=== PATIENT | female | born 1970 | race Asian ===

== ENCOUNTER 2023-01-11 16:59 | Emergency (ER) | payer OTHER, SELFPAY ==
[2023-01-11] VITALS (9 sets, daily range): BP systolic 187–235; BP diastolic 87–112; PULSE 75–88; RESP 18–26; TEMP 37.2; O2SAT 100; BMI 28.3
--- NOTE | 2023-01-11 18:05 | ED.RECABL ---
HPI - Recheck/Abnormal Lab/Rx General Chief Complaint: Recheck/Abnormal Lab/Rx Stated Complaint: High blood pressure Time Seen by Provider: 01/11/23 17:17 Source: patient Mode of arrival: Ambulatory History of Present Illness HPI narrative: 52F non smoker with history of HTN on Coreg ER 20mg Was at her clinic for a routine visit to get medication refills and they found her blood pressure was elevated over 200 and she was told to present to the emergency department for evaluation and treatment. She denies any symptoms such as headache or blurred vision. She has no chest pain or shortness of breath. She denies nausea, vomiting or diarrhea. She is not dizzy, weak or lightheaded. She denies any change in her medications and has not missed any doses. Related Data Previous Rx's Medication Instructions Recorded lisinopril 20 mg tablet 20 mg PO DAILY #30 tabs 01/11/23 Allergies Allergy/AdvReac Type Severity Reaction Status Date / Time Penicillins Allergy Difficulty Verified 01/11/23 17:08 Breathing Review of Systems Review of Systems Narrative: GENERAL: Denies chills, fatigue, malaise, fever, sweats. HEENT: Denies sinus pain, ear pain, sore throat, difficulty swallowing, dizziness. RESPIRATORY: Denies dyspnea, cough, wheezing, hemoptysis, sputum. CARDIOVASCULAR: Denies chest pain, palpitations, orthopnea, edema, GASTROINTESTINAL: Denies nausea, vomiting, abdominal pain, diarrhea, constipation, melena. : Denies dysuria, frequency, incontinence, hematuria, urinary retention. MUSCULOSKELETAL: denies weakness, joint pain, or bony pain SKIN: Denies rash, skin lesions, or other NEUROLOGIC: Denies weakness, headache, numbness, change in speech, confusion, seizures, incoordination. PSYCHIATRIC: No concerning psychosocial issues. 12 point review of systems is negative except for those stated above Patient History Social History Smoking Status: Never smoker Smoking Status: Never smoker alcohol intake frequency: 0-2 drinks per day Substance Use Type: does not use Exam Narrative Exam Narrative: GENERAL: [52] year old patient appears stated age. Well-developed patient, in mild distress. HEAD: Atraumatic. Normocephalic. EYES: Pupils equal round and reactive. Extraocular motions intact. No scleral icterus. No injection or drainage. ENT: Nose without bleeding, purulent drainage. Throat without erythema, tonsillar hypertrophy or exudate. Airway patent. NECK: Trachea midline. Non tender CARDIOVASCULAR: Regular rate and rhythm without murmurs, gallops, or rubs. RESPIRATORY: Clear to auscultation. Breath sounds equal bilaterally. No wheezes, rales, or rhonchi. GASTROINTESTINAL: Abdomen soft, non-tender, nondistended. EXTREMITIES: No edema or joint tenderness. BACK: Nontender without deformity or crepitance. No flank tenderness. NEURO: AOx3. SKIN: No rash or erythema of visible areas Initial Vital Signs Initial Vital Signs: Vital Signs Temperature 99.0 F 01/11/23 17:02 Pulse Rate 77 01/11/23 17:02 Respiratory Rate 18 01/11/23 17:02 Blood Pressure 223/107 H 01/11/23 17:02 Pulse Oximetry 100 01/11/23 17:02 Oxygen Delivery Method Room Air 01/11/23 17:02 Course Orders Ordered: Discontinued Medications Hydralazine HCl (Hydralazine 20 Mg/Ml Vial) 10 mg IV NOW ONE Stop: 01/11/23 18:17 Last Admin: 01/11/23 18:28 Dose: 10 mg Documented By: Lisinopril (Lisinopril 20 Mg Tablet) 20 mg PO NOW ONE Stop: 01/11/23 18:59 Last Admin: 01/11/23 19:09 Dose: 20 mg Documented By: Vital Signs Vital signs: Vital Signs - 8 hr 01/11/23 17:02 01/11/23 17:10 01/11/23 17:11 Temperature 99.0 F Pulse Rate 77 88 Respiratory Rate 18 Blood Pressure 223/107 H 235/112 H Pulse Oximetry 100 100 Oxygen Delivery Method Room Air 01/11/23 17:11 01/11/23 17:30 Temperature Pulse Rate 87 75 Respiratory Rate 22 Blood Pressure Pulse Oximetry 100 Oxygen Delivery Method MDM - Recheck/Abnormal Lab/Rx Lab Data 01/11/23 17:30 01/11/23 17:30 Labs: Lab Results 01/11/23 01/11/23 Range/Units 17:30 17:30 WBC 13.5 H (4.5-11.0) X10^3/uL RBC 4.85 (4.0-5.2) X10^6/uL Hgb 14.8 (12.0-16.0) g/dL Hct 43.2 (36-46) % MCV 89.1 (80-100) fL MCH 30.5 (26-34) PG MCHC 34.2 (30-36) % RDW 12.9 (11.6-14.8) % Plt Count 230 (150-400) X10^3/uL Neut % (Auto) 62.6 (50-75) % Lymph % (Auto) 27.9 (25-40) % [place] % (Auto) 7.6 (3-14) % Eos % (Auto) 1.3 L (2-4) % Baso % (Auto) 0.6 (0-2) % Neut # (Auto) 8400 H (0824-6549) /uL Lymph # (Auto) 3700 (7704-8466) /uL [place] # (Auto) 1000 H (0-900) /uL Eos # (Auto) 200 (0-450) /uL Baso # (Auto) 100 (0-100) /uL Sodium 138 (137-145) mmol/L Potassium 3.7 (3.4-5.1) mmol/L Chloride 102 (98-107) mmol/L Carbon Dioxide 27 (22-32) mmol/L BUN 7 (7-17) mg/dL Creatinine 0.57 (0.52-1.04) mg/dL Estimated GFR > 60 (>60) mL/min BUN/Creatinine Ratio 12.3 (6-22) Glucose 102 H (70-100) mg/dL Calcium 9.6 (8.4-10.2) mg/dL Total Bilirubin 0.9 (0.2-1.3) mg/dL AST 57 H (14-36) IU/L ALT 31 (<35) IU/L Alkaline Phosphatase 92 (38-126) U/L Total Creatine Kinase 103 (30-135) U/L Troponin I < 0.012 (0.01-0.034) ng/mL NT-Pro-B Natriuret Pep 46 (<125) pg/mL Total Protein 8.7 H (6.3-8.2) g/dL Albumin 4.6 (3.5-5.0) g/dL Globulin 4.1 (1.7-4.1) g/dL Albumin/Globulin Ratio 1.1 (1.0-2.8) MDM Narrative Medical decision making narrative: CC: 52-year-old female with asymptomatic hypertension Complicating co-morbidities: Known hypertension, age greater 50 Data collected from: Patient Medical records reviewed: Prior notes reviewed in our EMR Differential considered, but not limited to: Hypertension, medical noncompliance versus other Exam documented above, pertinent findings include: HR regular, lungs clear, abdomen soft, no focal neuro findings Lab Test results independently reviewed as above. Pertinent findings: No significant finding Independently reviewed EKG as above Treatments: Hydralazine and lisinopril Re-evaluations: Patient continues to be asymptomatic Discussion: Patient referred from primary care office for asymptomatic hypertension. Initially she was in the 210s or so and improved into the 190s and when 80s. She denies symptoms thought to be related to her high blood pressure. We discussed increasing her current medication or adding a 2nd agent. Given the extended release form of her meds we chose to add a 2nd. She is given return precautions and questions answered to her apparent satisfaction Disposition: see below, along with detailed discharge instructions that have been reviewed with patient as well as indications for ED re-evaluation and additional outpatient follow up Discharge Plan Departure Patient Disposition: Home Clinical Impression: Hypertension Instructions: High Blood Pressure Activity Restrictions/Additional Instructions: *You have been diagnosed with [hypertension] *What to do: *Please continue to take your regular medications as directed. [ x] New medication prescriptions sent to your pharmacy: [ [facility]] [ ] New medication written as a paper prescription [ ] No new medications given *Please follow up with your primary care provider in 2-3 days, call for an appointment. Let them know you were seen in the Emergency Department and that we ask that you be seen in follow up. We will electronically transmit a record of today's note if your PCP is in our system *If you do not have a primary care provider please contact the [facility] Resource line at [phone]. They will ask some questions about your medical history and help get you set up with a doctor in the community. *Return to Emergency Department if you should have any new, worsening or concerning symptoms, such as [fever greater than 101 F, shaking chills, worsening pain, persistent vomiting or other bothersome symptoms] Prescriptions: New lisinopril 20 mg tablet 20 mg PO DAILY Qty: 30 0RF Stand Alone Forms: Patient Portal/API
[2023-01-11 18:24] LABS: Add Manual Diff / Slide Review NO; Basophils Absolute Auto 100 /uL (0-100); Basophils Percent Auto 0.6 % (0-2); Eosinophils Absolute Auto 200 /uL (0-450); Eosinophils Percent Auto 1.3 % (2-4); Hematocrit 43.2 % (36-46); Hemoglobin 14.8 g/dL (12.0-16.0); Lymphocytes Absolute Auto 3700 /uL (1100-4500); Lymphocytes Percent Auto 27.9 % (25-40); Mean Corpuscular HGB Conc 34.2 % (30-36); Mean Corpuscular Hemoglobin 30.5 PG (26-34); Mean Corpuscular Volume 89.1 fL (80-100); Monocytes Absolute Auto 1000 /uL (0-900); Monocytes Percent Auto 7.6 % (3-14); Neutrophils Absolute Auto 8400 /uL (1500-7000); Neutrophils Percent Auto 62.6 % (50-75); Platelet Count 230 X10^3/uL (150-400); Red Blood Cell Count 4.85 X10^6/uL (4.0-5.2); Red Cell Distribution Width 12.9 % (11.6-14.8); White Blood Cell Count 13.5 X10^3/uL (4.5-11.0)
[2023-01-11] MEDS: HYDRALAZINE 20 MG/ML VIAL 10 MG IV (18:28)
[2023-01-11 18:30] LABS: Alanine Aminotransferase 31 IU/L (<35); Albumin 4.6 g/dL (3.5-5.0); Albumin Globulin Ratio 1.1 (1.0-2.8); Alkaline Phosphatase 92 U/L (38-126); Aspartate Aminotransferase 57 IU/L (14-36); BUN Creatinine Ratio 12.3 (6-22); Bilirubin Total 0.9 mg/dL (0.2-1.3); Blood Urea Nitrogen 7 mg/dL (7-17); Calcium 9.6 mg/dL (8.4-10.2); Carbon Dioxide 27 mmol/L (22-32); Chloride 102 mmol/L (98-107); Creatine Kinase 103 U/L (30-135); Estimated Glomerular Filt Rate > 60 mL/min (>60); Globulin 4.1 g/dL (1.7-4.1); Glucose 102 mg/dL (70-100); HEMOLYSIS 36 (0-50); Potassium 3.7 mmol/L (3.4-5.1); Sodium 138 mmol/L (137-145); Total Protein 8.7 g/dL (6.3-8.2)
[2023-01-11 18:42] LABS: NT-proBNP (BNP-Adult 18+) 46 pg/mL (<125); Troponin I < 0.012 ng/mL (0.01-0.034)
[2023-01-11] MEDS: lisinopriL 20 MG TABLET PO (19:09)
== END 2023-01-11 19:13 | disposition home or self-care (01) ==
PROVIDERS: Emergency Provider Emergency Medicine
DX: I10 Essential (primary) hypertension (principal)
CPT/HCPCS: 80053; 82550; 83880; 84484; 85025; 93005; 93010; 96374; 99284; J0360